=== PATIENT | male | born 1985 | race Caucasian/White ===

== ENCOUNTER 2019-01-08 16:14 | Emergency (ER) | payer MEDICAID, OTHER ==
[~2019-01-08] VITALS: Ht 180.3 cm; Wt 58.0 kg
[~2019-01-08 16:14] MED LIST: NO HOME MEDS
[2019-01-08 16:31] VITALS: BP 103/69
[2019-01-08] MEDS ORDERED: VIG0.5OS LEFTEYE (17:22)
[2019-01-08] MEDS ORDERED: POLOS LEFTEYE (17:22)
== END 2019-01-08 17:31 | disposition home or self-care (01) ==
LOC: ER 16:15
DX: T15.02XA Foreign body in cornea, left eye, initial encounter (principal); Z88.1 Allergy status to other antibiotic agents; X58.XXXA Exposure to other specified factors, initial encounter; Y93.89 Activity, other specified; Y92.89 Other specified places as the place of occurrence of the external cause; Y99.9 Unspecified external cause status
CPT/HCPCS: 65205; 65220; 99284

== ENCOUNTER 2020-01-06 21:04 | Emergency (ER) | payer SELFPAY ==
[~2020-01-06] VITALS: Ht 180.3 cm; Wt 77.3 kg
[2020-01-06 21:14] VITALS: BP 104/66
[2020-01-06 21:40] LABS: BASOPHILS # (AUTO) 0.1 X10'3 (0-0.2); EOSINOPHILS # (AUTO) 0.3 X10'3 (0-0.9); EOSINOPHILS % (AUTO) 4.1 % (0-6); HEMATOCRIT 42.9 % (42.0-52.0); HEMOGLOBIN 14.6 g/dl (14.0-17.9); LYMPHOCYTES # (AUTO) 1.7 X10'3 (1.1-4.8); LYMPHOCYTES % (AUTO) 23.2 % (21-51); MEAN CORPUSCULAR HEMOGLOBIN 30.4 PG (27.0-31.0); MEAN CORPUSCULAR HGB CONC 34.1 g/dL (33.0-36.5); MEAN CORPUSCULAR VOLUME 89.2 FL (78-98); MEAN PLATELET VOLUME 7.6 FL (7.4-10.4); MONOCYTES # (AUTO) 0.7 X10'3 (0-0.9); MONOCYTES % (AUTO) 9.3 % (2-12); NEUTROPHILS # (AUTO) 4.6 X10'3 (1.8-7.7); NEUTROPHILS % (AUTO) 62.4 % (42-75); PLATELET COUNT 242 X10'3 (140-440); RED BLOOD COUNT 4.81 X10'6 (4.70-6.10); RED CELL DISTRIBUTION WIDTH 13.2 % (11.5-14.5); WHITE BLOOD COUNT 7.3 X10'3 (4.5-11.0)
== END 2020-01-06 21:45 | disposition home or self-care (01) ==
LOC: ER 21:05
DX: S76.011A Strain of muscle, fascia and tendon of right hip, initial encounter (principal); R10.30 Lower abdominal pain, unspecified; Z72.89 Other problems related to lifestyle; Z88.1 Allergy status to other antibiotic agents; X58.XXXA Exposure to other specified factors, initial encounter; Y93.89 Activity, other specified; Y92.89 Other specified places as the place of occurrence of the external cause; Y99.8 Other external cause status
CPT/HCPCS: 36415; 85025; 99283

== ENCOUNTER 2020-01-13 17:53 | Emergency (ER) | payer MEDICAID, OTHER ==
[~2020-01-13] VITALS: Ht 180.3 cm; Wt 77.3 kg
--- NOTE | 2020-01-13 20:20 | NUR ---
VASCULAR PAGGED BY MAIN LOGGING WORKER
--- NOTE | 2020-01-13 20:20 | NUR ---
Bertha palumbo in [facility] - 01/13/20 at 2106 by TESSIE ULTRA AMANDA BLANKENSHIP
--- NOTE | 2020-01-13 20:45 | NUR ---
VASCULAR STILL NOT AT BEDSIDE MANDEL AND CHARGE NURSE AWARE . PLAN OF CARE UPDATED WITH PATIENT
--- NOTE | 2020-01-13 20:49 | NUR ---
VASCULAR WAS PAGGED , TEQUILA IS AWARE WELL CHARGE NURSE AN DPROVIDER .
--- NOTE | 2020-01-13 21:43 | NUR ---
VASCULAR AT BEDSIDE TO SEE PATIENT
[2020-01-13 22:17] VITALS: BP 120/56
== END 2020-01-13 22:15 | disposition home or self-care (01) ==
LOC: ER 17:54
DX: R22.41 Localized swelling, mass and lump, right lower limb (principal); Z88.1 Allergy status to other antibiotic agents
CPT/HCPCS: 93971; 99284

== ENCOUNTER 2021-11-04 15:23 | Emergency (ER) | payer MEDICAID, OTHER ==
[~2021-11-04] VITALS: Ht 180.3 cm; Wt 75.0 kg
[2021-11-04 16:04] VITALS: BP 119/60
[2021-11-04] MEDS ORDERED: LIDOcaine 1% 30ml preserv. free vial IJ ONE ×2 (17:45→17:55)
[2021-11-04] MEDS ORDERED: CEPH500C81 PO (17:59)
[2021-11-04] MEDS ORDERED: HYDR-3972 PO (17:59)
[2021-11-04] MEDS ORDERED: SULF1TAB49 PO (17:59)
[2021-11-04] MEDS ORDERED: cephalexin 250mg capsule PO ONE (19:15)
[2021-11-04] MEDS ORDERED: sulfamethoxazole/trimethoprim DS (800/160mg) tablet PO ONE (19:15)
== END 2021-11-04 19:30 | disposition home or self-care (01) ==
LOC: ER 15:24
DX: L02.511 Cutaneous abscess of right hand (principal)
CPT/HCPCS: 10060; 87070; 87077; 87186; 99283

== ENCOUNTER 2021-11-07 13:56 | Emergency (ER) | payer MEDICAID ==
[~2021-11-07] VITALS: Ht 180.3 cm; Wt 75.0 kg
[~2021-11-07 13:56] MED LIST changes: +CEPH500C81 PO; +HYDR-3972 PO; +LIDOcaine 1% 30ml preserv. free vial ONE; +SULF1TAB49 PO
[2021-11-07 14:05] VITALS: BP 122/69
[2021-11-07 14:47] LABS: BASOPHILS # (AUTO) 0.1 X10'3 (0-0.2); BASOPHILS % (AUTO) 0.9 % (0-1); EOSINOPHILS # (AUTO) 0.2 X10'3 (0-0.9); EOSINOPHILS % (AUTO) 2.7 % (0-6); HEMATOCRIT 43.7 % (42.0-52.0); HEMOGLOBIN 14.6 g/dl (14.0-17.9); LYMPHOCYTES # (AUTO) 1.3 X10'3 (1.1-4.8); LYMPHOCYTES % (AUTO) 19.7 % (21-51); MEAN CORPUSCULAR HEMOGLOBIN 29.2 PG (27.0-31.0); MEAN CORPUSCULAR HGB CONC 33.5 g/dL (33.0-36.5); MEAN CORPUSCULAR VOLUME 87.2 FL (78-98); MEAN PLATELET VOLUME 7.7 FL (7.4-10.4); MONOCYTES # (AUTO) 0.6 X10'3 (0-0.9); MONOCYTES % (AUTO) 8.9 % (2-12); NEUTROPHILS # (AUTO) 4.6 X10'3 (1.8-7.7); NEUTROPHILS % (AUTO) 67.8 % (42-75); PLATELET COUNT 257 X10'3 (140-440); RED BLOOD COUNT 5.01 X10'6 (4.70-6.10); RED CELL DISTRIBUTION WIDTH 13.8 % (11.5-14.5); WHITE BLOOD COUNT 6.7 X10'3 (4.5-11.0)
[2021-11-07 14:51] LABS: ALANINE AMINOTRANSFERASE 65 U/L (12-78); ALBUMIN 3.8 G/DL (3.4-5.0); ALBUMIN/GLOBULIN RATIO 0.9 (1.1-1.5); ALKALINE PHOSPHATASE 80 IU/L (46-116); ANION GAP 8 (8-16); ASPARTATE AMINO TRANSFERASE 19 U/L (10-37); BILIRUBIN,TOTAL 0.5 MG/DL (0.1-1.0); BLOOD UREA NITROGEN 17 MG/DL (7-18); BUN/CREATININE RATIO 17.2 (5.4-32.0); CALCIUM 9.3 MG/DL (8.5-10.1); CHLORIDE 104 MMOL/L (99-107); CREATININE 0.99 MG/DL (0.60-1.10); GLUCOSE 110 MG/DL (70-104); POTASSIUM 3.7 MMOL/L (3.5-5.1); SODIUM 142 MMOL/L (135-145); TOTAL CARBON DIOXIDE 30.3 MMOL/L (24-32); eGFR 85 ML/MIN
[2021-11-07] MEDS ORDERED: clindamycin 600mg/D5W 50ml 50 ML IV ONE (17:35)
[2021-11-07] MEDS ORDERED: CLIN-97 PO (17:44)
--- NOTE | 2021-11-07 19:10 | NUR ---
IV DC'D PT BEING DISCHARGED. DRESSING APPLIED
== END 2021-11-07 19:13 | disposition home or self-care (01) ==
LOC: ER 13:57
DX: L03.011 Cellulitis of right finger (principal)
CPT/HCPCS: 10060; 36415; 80053; 83605; 84145; 85025; 87040; 96365; 99284; J3490

== ENCOUNTER 2023-05-24 12:33 | Emergency (ER) | payer MEDICAID ==
[~2023-05-24] VITALS: Ht 180.3 cm; Wt 79.4 kg
[~2023-05-24 12:33] MED LIST changes: -CEPH500C81 PO; +CLIN-97 PO; -HYDR-3972 PO; -LIDOcaine 1% 30ml preserv. free vial ONE; -SULF1TAB49 PO
[2023-05-24 12:34] VITALS: BP 115/76; PULSE 83; RESP 16; TEMP 98.5; O2SAT 97
[2023-05-24] MEDS ORDERED: AMOX-580 PO (12:58)
[2023-05-24] MEDS ORDERED: dexamethasone sod phosphate 10mg/ml inj PO STA (12:59)
== END 2023-05-24 13:10 | disposition home or self-care (01) ==
LOC: ER 12:33
DX: J35.1 Hypertrophy of tonsils (principal); J02.9 Acute pharyngitis, unspecified; Z72.89 Other problems related to lifestyle; Z88.1 Allergy status to other antibiotic agents; Z79.899 Other long term (current) drug therapy
CPT/HCPCS: 99283; J1100